=== PATIENT | female | born 1940 | race Caucasian/White ===

== ENCOUNTER 2024-04-26 20:08 | Inpatient (IN) | payer MEDICARE, MEDICAID ==
[~2024-04-26] VITALS: Ht 139.7 cm; Wt 66.7 kg
[2024-04-26 20:08] VITALS: BP_SYST 195; PULSE 108; RESP 16; TEMP 97.9; O2SAT 96
[2024-04-26 21:02] LABS: BILIRUBIN,URINE NEGATIVE (NEGATIVE); BLOOD, URINE NEGATIVE (NEGATIVE); CLARITY/URINE CLEAR (CLEAR); GLUCOSE,URINE NEGATIVE (NEGATIVE); KETONES,URINE NEGATIVE (NEGATIVE); LEUKOCYTE ESTERASE ,URINE NEGATIVE (NEGATIVE); NITRITE, URINE NEGATIVE (NEGATIVE); PROTEIN URINE NEGATIVE (NEGATIVE); UROBILINOGEN,URINE 0.2 (0.2-1.0)
[2024-04-26 21:05] LABS: COLOR,URINE STRAW (YELLOW)
[2024-04-26 21:08] LABS: BASOPHILS % (AUTO) 0.4 % (0.0-2.0); EOSINOPHILS # (AUTO) 0.2 K/uL (0.0-0.4); EOSINOPHILS % (AUTO) 2.9 % (0.0-4.0); HEMATOCRIT 44.7 % (36-48); HEMOGLOBIN 15.4 g/dL (12.0-16.0); LYMPHOCYTES # (AUTO) 1.8 K/uL (1.0-5.5); LYMPHOCYTES % (AUTO) 30.8 % (20.5-51.5); MEAN CORPUSCULAR HEMOGLOBIN 30 pg (27-31); MEAN CORPUSCULAR HGB CONC 34 % (32-36); MEAN CORPUSCULAR VOLUME 87 fL (79.0-98.0); MONOCYTES # (AUTO) 0.6 K/uL (0.0-1.0); MONOCYTES % (AUTO) 10.7 % (1.7-9.3); NEUTROPHILS # (AUTO) 3.3 K/uL (1.8-7.7); NEUTROPHILS % (AUTO) 55.2 % (40.0-70.0); PLATELET COUNT (AUTO) 176 K/uL (130-430); RED BLOOD CELL COUNT(AUTO) 5.17 MIL/uL (4.2-6.2); RED CELL DISTRIBUTION WIDTH 13.8 % (9.0-15.0)
[2024-04-26 21:18] LABS: PROTHROMBIN TIME 10.5 SECS (9.5-12.5)
[2024-04-26 21:31] LABS: BARBITURATE, URINE NEGATIVE (NEG <=200); BENZODIAZEPINE, URINE NEGATIVE (NEG <=150); CANNABINOID, URINE NEGATIVE (NEG <=50); COCAINE, URINE NEGATIVE (NEG <=150); METHAMPHETAMINES SCREEN,URINE NEGATIVE (NEG <=500); OPIATE, URINE NEGATIVE (NEG <=100); PHENCYCLIDINE SCREEN,URINE NEGATIVE (NEG <=25); UR TRICYCLIC ANTIDEPRESSANTS NEGATIVE (NEG <=300); URINE AMPHETAMINE NEGATIVE (NEG <=500); URINE METHADONE NEGATIVE (NEG <=200); URINE OXYCODONE SCREEN NEGATIVE (NEG <=100)
[2024-04-26] MEDS: LABETALOL HCL 20 MG/4 ML CARTRIDGE IVP ONE (21:54)
[2024-04-26 22:01] LABS: ANION GAP 12 (5-15); CALCIUM 9.7 mg/dL (8.4-11.0); CARBON DIOXIDE 28 mmol/L (23-29); CHLORIDE 104 mmol/L (98-107); CHOLESTEROL 203 mg/dL (<200); CREATININE 0.69 mg/dL (0.55-1.30); GLUCOSE 128 mg/dL (74-106); HDL CHOLESTEROL 53 mg/dL (>55); POTASSIUM 3.8 mmol/L (3.5-5.1); SODIUM SERUM 144 mmol/L (136-145); TRIGLYCERIDES 151 mg/dL (30-150); UREA NITROGEN, BLOOD 15 mg/dL (8-21)
[2024-04-26] MEDS ORDERED: ENOXAPARIN SODIUM 60 MG/0.6 ML SYRINGE ONE (22:21)
[2024-04-26] MEDS ORDERED: iohexoL 350 mgI/mL, 100 ML INFUS..BTL IV ONE (22:22)
[2024-04-26 22:26] LABS: HEMOGLOBIN A1C 6.6 % (<5.7)
[2024-04-26] MEDS: ENOXAPARIN SODIUM 60 MG/0.6 ML SYRINGE SUBCUT ONE (23:03)
[2024-04-26] MEDS: PANTOPRAZOLE SODIUM 40 MG TAB PO ONE (23:15)
[2024-04-26] MEDS ORDERED: LIP40 PO (23:20)
[2024-04-26] MEDS ORDERED: LISI10TA29 PO (23:20)
[2024-04-26] MEDS ORDERED: ASPI-1155 PO (23:20)
[2024-04-26] MEDS ORDERED: AMLO2.5T2 PO (23:20)
[2024-04-26] MEDS ORDERED: INSULIN REGULAR, HUMAN 100 UNITS/ML, 3 ML VIAL (humuLIN R) SUBCUT PRN (23:30)
[2024-04-26] MEDS ORDERED: DEXTROSE 50% JECT 50 ML DISP.SYRIN IVP PRN (23:30)
[2024-04-26] MEDS ORDERED: ONDANSETRON HCL 4 MG/2 ML VIAL IVP PRN (23:30)
[2024-04-26] MEDS ORDERED: hydrALAZINE HCL 20 MG/ML VIAL ONE (23:51)
[2024-04-26] MEDS: ASPIRIN 81 MG TAB.CHEW PO ONE (23:58)
[2024-04-26] MEDS: hydrALAZINE HCL 20 MG/ML VIAL IVP PRN (23:59)
[2024-04-27 03:05] VITALS: BP_SYST 136; PULSE 86; RESP 18; TEMP 98.4
[2024-04-27 05:17] LABS: BASOPHILS % (AUTO) 0.2 % (0.0-2.0); EOSINOPHILS # (AUTO) 0.1 K/uL (0.0-0.4); EOSINOPHILS % (AUTO) 1.3 % (0.0-4.0); HEMATOCRIT 40.3 % (36-48); HEMOGLOBIN 13.7 g/dL (12.0-16.0); LYMPHOCYTES # (AUTO) 1.2 K/uL (1.0-5.5); LYMPHOCYTES % (AUTO) 16.5 % (20.5-51.5); MEAN CORPUSCULAR HEMOGLOBIN 30 pg (27-31); MEAN CORPUSCULAR HGB CONC 34 % (32-36); MEAN CORPUSCULAR VOLUME 87 fL (79.0-98.0); MONOCYTES # (AUTO) 0.8 K/uL (0.0-1.0); MONOCYTES % (AUTO) 11.1 % (1.7-9.3); NEUTROPHILS # (AUTO) 5.1 K/uL (1.8-7.7); NEUTROPHILS % (AUTO) 70.9 % (40.0-70.0); PLATELET COUNT (AUTO) 170 K/uL (130-430); RED BLOOD CELL COUNT(AUTO) 4.62 MIL/uL (4.2-6.2); RED CELL DISTRIBUTION WIDTH 13.4 % (9.0-15.0); WHITE BLOOD COUNT (AUTO) 7.2 K/uL (4.8-10.8)
[2024-04-27 05:53] LABS: ALANINE AMINOTRANSFERASE 16 U/L (12-78); ALBUMIN 3.1 g/dL (3.4-4.8); ANION GAP 8 (5-15); ASPARTATE AMINOTRANSFERASE 13 U/L (10-37); CALCIUM 9.1 mg/dL (8.4-11.0); CARBON DIOXIDE 29 mmol/L (23-29); CHLORIDE 107 mmol/L (98-107); CREATININE 0.62 mg/dL (0.55-1.30); GLUCOSE 123 mg/dL (74-106); POTASSIUM 3.7 mmol/L (3.5-5.1); SODIUM SERUM 144 mmol/L (136-145); TOTAL BILIRUBIN 0.4 mg/dL (0.0-1.0); TOTAL PROTEIN, SERUM 6.9 g/dL (6.4-8.3); UREA NITROGEN, BLOOD 17 mg/dL (8-21)
[2024-04-27 06:15] LABS: CHOLESTEROL 178 mg/dL (<200); HDL CHOLESTEROL 45 mg/dL (>55); TRIGLYCERIDES 123 mg/dL (30-150)
[2024-04-27 08:00] VITALS: BP_SYST 150; PULSE 67; RESP 20; TEMP 97.7; O2SAT 98
[2024-04-27 09:00] VITALS: O2SAT 98
[2024-04-27] MEDS ORDERED: ASPIRIN 81 MG TAB.CHEW PO SCH (09:00)
[2024-04-27] MEDS: ATORVASTATIN 20 MG TABLET PO SCH (09:13)
[2024-04-27] MEDS: PANTOPRAZOLE SODIUM 40 MG TAB PO SCH (09:13)
[2024-04-27] MEDS: ASPIRIN 81 MG TAB.CHEW PO SCH (09:14)
[2024-04-27] MEDS: LISINOPRIL 10 MG TABLET (PRINIVIL) PO SCH (09:14)
[2024-04-27] MEDS: amLODIPine BESYLATE 5 MG TABLET PO SCH (09:15)
[2024-04-27] MEDS: ENOXAPARIN SODIUM 60 MG/0.6 ML SYRINGE SUBCUT SCH (09:15)
[2024-04-27 12:43] VITALS: BP_SYST 150; PULSE 71; RESP 17; TEMP 98.2; O2SAT 96
[2024-04-27] MEDS: D5LR 1,000 ML IV SCH (17:42)
[2024-04-27 18:34] VITALS: BP_SYST 167; PULSE 74; RESP 17; TEMP 97.5
[2024-04-27 20:00] VITALS: BP_SYST 160; PULSE 86; RESP 18; TEMP 98; O2SAT 96
[2024-04-27] MEDS: cloNIDine HCL 0.1 MG TABLET PO PRN (21:24)
[2024-04-28 01:02] VITALS: BP_SYST 127; PULSE 70; RESP 17; TEMP 98.3; O2SAT 93
[2024-04-28 05:49] LABS: BASOPHILS % (AUTO) 0.3 % (0.0-2.0); EOSINOPHILS # (AUTO) 0.1 K/uL (0.0-0.4); EOSINOPHILS % (AUTO) 1.5 % (0.0-4.0); HEMATOCRIT 38.6 % (36-48); HEMOGLOBIN 12.7 g/dL (12.0-16.0); LYMPHOCYTES # (AUTO) 1.3 K/uL (1.0-5.5); LYMPHOCYTES % (AUTO) 21.1 % (20.5-51.5); MEAN CORPUSCULAR HEMOGLOBIN 29 pg (27-31); MEAN CORPUSCULAR HGB CONC 33 % (32-36); MEAN CORPUSCULAR VOLUME 89 fL (79.0-98.0); MONOCYTES # (AUTO) 0.7 K/uL (0.0-1.0); MONOCYTES % (AUTO) 11.8 % (1.7-9.3); NEUTROPHILS # (AUTO) 4.1 K/uL (1.8-7.7); NEUTROPHILS % (AUTO) 65.3 % (40.0-70.0); PLATELET COUNT (AUTO) 157 K/uL (130-430); RED BLOOD CELL COUNT(AUTO) 4.36 MIL/uL (4.2-6.2); RED CELL DISTRIBUTION WIDTH 14.1 % (9.0-15.0); WHITE BLOOD COUNT (AUTO) 6.2 K/uL (4.8-10.8)
[2024-04-28 05:58] LABS: ALANINE AMINOTRANSFERASE 11 U/L (12-78); ALBUMIN 2.6 g/dL (3.4-4.8); ANION GAP 6 (5-15); ASPARTATE AMINOTRANSFERASE 10 U/L (10-37); CALCIUM 8.4 mg/dL (8.4-11.0); CARBON DIOXIDE 30 mmol/L (23-29); CHLORIDE 107 mmol/L (98-107); CREATININE 0.67 mg/dL (0.55-1.30); GLUCOSE 131 mg/dL (74-106); POTASSIUM 3.7 mmol/L (3.5-5.1); SODIUM SERUM 143 mmol/L (136-145); TOTAL BILIRUBIN 0.7 mg/dL (0.0-1.0); TOTAL PROTEIN, SERUM 6.1 g/dL (6.4-8.3); UREA NITROGEN, BLOOD 20 mg/dL (8-21)
[2024-04-28 06:17] LABS: THYROID STIMULATING HORMONE 1.64 uIu/mL (0.36-3.74)
[2024-04-28 08:13] VITALS: BP_SYST 125; PULSE 71; RESP 18; TEMP 96.2; O2SAT 94
[2024-04-28 09:30] VITALS: O2SAT 94
[2024-04-28 12:36] VITALS: BP_SYST 126; PULSE 69; RESP 17; TEMP 96.8; O2SAT 96
[2024-04-28 16:35] VITALS: BP_SYST 124; PULSE 70; RESP 18; TEMP 96.4; O2SAT 95
[2024-04-28 20:00] VITALS: BP_SYST 160; PULSE 85; RESP 18; TEMP 97.1; O2SAT 95
[2024-04-29] VITALS (7 sets, daily range): BP systolic 123–166; PULSE 59–75; RESP 16–20; TEMP 97.1–97.9; O2SAT 93–95
[2024-04-29 09:00] LABS: BASOPHILS % (AUTO) 0.4 % (0.0-2.0); EOSINOPHILS # (AUTO) 0.2 K/uL (0.0-0.4); EOSINOPHILS % (AUTO) 3.8 % (0.0-4.0); HEMATOCRIT 38.6 % (36-48); HEMOGLOBIN 12.9 g/dL (12.0-16.0); LYMPHOCYTES # (AUTO) 1.4 K/uL (1.0-5.5); LYMPHOCYTES % (AUTO) 26.1 % (20.5-51.5); MEAN CORPUSCULAR HEMOGLOBIN 29 pg (27-31); MEAN CORPUSCULAR HGB CONC 34 % (32-36); MEAN CORPUSCULAR VOLUME 88 fL (79.0-98.0); MONOCYTES # (AUTO) 0.6 K/uL (0.0-1.0); MONOCYTES % (AUTO) 12.1 % (1.7-9.3); NEUTROPHILS % (AUTO) 57.6 % (40.0-70.0); PLATELET COUNT (AUTO) 152 K/uL (130-430); RED BLOOD CELL COUNT(AUTO) 4.41 MIL/uL (4.2-6.2); RED CELL DISTRIBUTION WIDTH 13.4 % (9.0-15.0); WHITE BLOOD COUNT (AUTO) 5.3 K/uL (4.8-10.8)
[2024-04-29 09:22] LABS: ANION GAP 6 (5-15); CALCIUM 8.8 mg/dL (8.4-11.0); CARBON DIOXIDE 30 mmol/L (23-29); CHLORIDE 106 mmol/L (98-107); CREATININE 0.54 mg/dL (0.55-1.30); GLUCOSE 124 mg/dL (74-106); POTASSIUM 3.8 mmol/L (3.5-5.1); SODIUM SERUM 142 mmol/L (136-145); UREA NITROGEN, BLOOD 16 mg/dL (8-21)
[2024-04-29] MEDS ORDERED: CLON0.1T PO (13:25)
[2024-04-29] MEDS ORDERED: PRO40 PO (13:25)
[2024-04-30] VITALS: BP_SYST 166; PULSE 75; RESP 18; TEMP 97.1; O2SAT 94
[2024-04-30 05:40] VITALS: BP_SYST 137; PULSE 64
[2024-04-30 07:58] VITALS: BP_SYST 145; PULSE 61; RESP 18; TEMP 97.9; O2SAT 94
[2024-04-30 08:00] VITALS: O2SAT 94
[2024-04-30 08:01] VITALS: BP_SYST 157
[2024-04-30] MEDS ORDERED: PANTOPRAZOLE SODIUM 40 MG TAB PO SCH (10:30)
[2024-04-30 12:44] VITALS: BP_SYST 142; PULSE 65; RESP 17; TEMP 97.4; O2SAT 97
== END 2024-04-30 15:45 | disposition home health service (06) | DRG 64 ==
LOC: SED 20:08 → STU 22:06
PROVIDERS: ADMIT Internal Medicine; ATTEND Internal Medicine
PROC: 4A00X4Z Measurement of Central Nervous Electrical Activity, External Approach (ICD-10-PCS; principal; 2024-04-26)
DX: I63.532 Cerebral infarction due to unspecified occlusion or stenosis of left posterior cerebral artery (principal); I21.A1 Myocardial infarction type 2; J96.01 Acute respiratory failure with hypoxia; G81.91 Hemiplegia, unspecified affecting right dominant side; E44.1 Mild protein-calorie malnutrition; E66.9 Obesity, unspecified; I25.10 Atherosclerotic heart disease of native coronary artery without angina pectoris; E11.9 Type 2 diabetes mellitus without complications; I11.9 Hypertensive heart disease without heart failure; E78.5 Hyperlipidemia, unspecified; Z79.82 Long term (current) use of aspirin; Z98.51 Tubal ligation status; Z79.899 Other long term (current) drug therapy; Z68.34 Body mass index [BMI] 34.0-34.9, adult; R47.02 Dysphasia
CPT/HCPCS: 36415; 70450; 70551; 71045; 71275; 80048; 80053; 80061; 80307; 81001; 81003; 82948; 83037; 84443; 84484; 85025; 85379; 85610; 85730; 86886; 86900; 86901; 87040; 93005; 93306; 93880; 93970; 95816; 96372; 96374; 96375; 97110-GP; 97112-GP; 97116-GP; 97530-GP; 99291; G0378; J0360; J1650; J1815; Q9967